=== PATIENT | male | born 2000 | race Hispanic/Latino ===

== ENCOUNTER 2025-07-12 02:52 | Emergency (ER) | payer SELFPAY ==
[~2025-07-12] VITALS: Ht 170.2 cm; Wt 66.7 kg
--- NOTE | 2025-07-12 04:49 | ERN ---
ED Note History of Present Illness Stated Complaint: SCALP LACERATION Chief Complaint: Laceration/Avulsion Time Seen by MD: 02:54 Dictation: This is a 25-year-old male who presented to the emergency room with complaints of bleeding and laceration of his scalp on the left side. Patient apparently drank 6 beers today and he was trying to maneuver through a frame which was wooden and hit the site left side of his head with force and sustained a laceration which bled. No other injury and no no loss of consciousness. No history of any blood thinners. No blurred vision facial droop motor weakness or seizure activity. Temperature 98 pulse 88 respirations 15 blood pressure 150/94 with a pulse oximetry of 97% on room air Allergies: Coded Allergies: No Known Drug Allergies (Unverified Allergy, Unknown, 07/12/25) Past Medical History Past Medical History: No Pertinent History Surgical History: None Family History: Negative Social History: ETOH RN Note Reviewed/Agreed w/PFSH: Yes Review of System Dictation Constitutional: Negative for fever,chills, and weight loss Eyes: Negative for injury, pain,redness, and discharge ENT: Negative for injury,pain or swelling Cardiovascular: Negative for chest pain, palpitations, and edema Respiratory: Negative for shortness of breath, cough, and wheezing, Abdomen/GI: Negative for abdominal pain, nausea, vomiting, diarrhea, and constipation Back: Negative for injury and pain : Negative for injury, bleeding and discharge MS/Extremity: Negative for injury and deformity Skin: Negative for rash, and discoloration positive for laceration and bleeding of the left side of the head Neuro: Negative for headache, weakness, numbness, tingling, and seizure Psych: Negative for suicide ideation, homicidal ideation, and hallucinations Initial Vital Sign VS Vital Signs Date Time Temp Pulse Resp B/P (MAP) Pulse Ox O2 Delivery O2 Flow Rate FiO2 07/12/25 02:53 98.8 88 15 150/94 97 Room Air 0 07/12/25 03:48 21 Physical Exam Dictation General: awake, alert, NAD Head/Face: Normocephalic, left parietal area about 2.5 cm linear laceration some fresh oozing of blood noted Eyes: PERRL, EOMI, vision at baseline ENT: oral cavity clear, TMs clear, no signs of infection Neck: Trachea midline, supple, no nuchal rigidity Cardiovascular: RRR, normal S1/S2, No MRGs, no JVD Respiratory: CTAB, no respiratory distress, No rales or wheezes Abdomen: Soft, non-tender, non-distended, normal bowel sounds, no guarding or rebound. Skin: Warm, dry, normal turgor, no rash MS/Extremity: Pulses equal, no cyanosis, neurovascular intact, FROM Neuro: COAx4, GCS 15, strength 5/5, CN 2-12 intact, normal cerebellar exam, normal gait, Psych: Normal behavior, mood, and affect normal Extremities-trace edema without any palpable cords, Homans sign is negative Results (Laboratory/Radiology) Labs Reviewed?: Yes ED Course ED Course Orders Procedure Category Date Status Time Ct Head/Brain W/O CT 07/12/25 Resulted Contrast 03:14 Tetanus,Diphtheria PHA 07/12/25 Complete Tox [Adult] (Diphther 05:00 Current Medications Medications (Trade) Dose Ordered Sig/Davida Route PRN Reason Start Time Stop Time Status Last Admin Dose Admin Tetanus/ Diphtheria Toxoids Adsorbed (DiphthERIA-teTANUS TOXOID [ADULT]/ DECAVAC) 0.5 ml ONCE ONCE IM 07/12/25 05:00 07/12/25 05:01 DC 07/12/25 04:57 Vital Signs Date Time Temp Pulse Resp B/P (MAP) Pulse Ox O2 Delivery O2 Flow Rate FiO2 07/12/25 05:04 98.8 80 16 116/82 100 Room Air* 0 21 07/12/25 03:48 98.8 89 17 103/70 100 Room Air* 0 21 07/12/25 02:53 98.8 88 15 150/94 97 Room Air 0 Medical Decision Making MDM Differential diagnosis: Closed head injury, hematoma of scalp, depressed skull fracture, laceration, intracranial bleed This is a 25-year-old male who presented to the emergency room with complaints of bleeding and laceration of his scalp on the left side. Patient apparently drank 6 beers today and he was trying to maneuver through a frame which was wooden and hit the site left side of his head with force and sustained a laceration which bled. No other injury and no no loss of consciousness. No history of any blood thinners. No blurred vision facial droop motor weakness or seizure activity. Temperature 98 pulse 88 respirations 15 blood pressure 150/94 with a pulse oximetry of 97% on room air Rationale: Tests considered and ordered secondary to shared decision making include: Head CT Previous outside records reviewed: Old ER visits. Risk of complication and/or morbidity or mortality of patient management: None Medications-Per medication reconciliation Need for hospitalization: Patient does not meet criteria for hospitalization. Need for emergency major/minor surgery: No There are no social concerns with this patient. Prescription drug management Prescriptions will include symptomatic care Patient's prior external medical records from other ER visits were reviewed by me as indicated. Prior testing and results from previous visits were reviewed. Prior tests were taken into account with medical decision making and resource utilization, independent historian/historians were used to obtain complete medical history. I independently interpreted the test that were performed, results were reviewed by me and considered findings on radiology if ordered. Medical management and examination interpretation discussions were had by me with other qualified healthcare professionals as indicated for the patient's care. Procedure Procedure Dictation: Procedure note-laceration repair Performing Physician -Danish WINN [id number]-wxiat-mahou scalp laceration about 3cm in size with gaping wound and bleeding Premedication and anesthesia-none Procedure-extensive saline irrigation was done and the laceration was cleaned thoroughly and prepped. Three patricia were placed from superior to the inferior to oppose the edges of the laceration. Hemostasis was achieved wound was cleansed after the suturing and sterile dressing applied. Patient tolerated the procedure extremely well without any immediate complications. Patient was instructed on wound care and he will return to the ER for removal of sutures in 7-10 days Wound Location: head Wound Length (cm): 3 Wound's Depth, Shape: into muscle, linear Wound Explored: contaminated Betadine Prep?: Yes Wound Debrided: minimal Wound Repaired With: patricia Sterile Dressing Applied?: Yes Problem List Problem List: (1) Closed head injury (2) Laceration of scalp (3) Alcohol ingestion DX & DISP Disposition: Discharge Departure Impression: Primary Impression: Head injury Additional Impressions: Laceration of scalp, Alcohol ingestion Condition: Stable Additional Instructions: Patient and the caregiver have been informed of all the diagnostic tests and the imaging conducted during the today's visit to the emergency room and has verbalized understanding of the results I have personally reviewed and interpreted all diagnostic exams performed here in the ER today as well as the vital signs documented by the nursing staff. The patient is now being discharged to home and should follow up with the primary care physician or the specialist as directed by the ER staff. Follow-up with primary care provider in 1 to 2 days. Take medications as directed here in the emergency room. Okay to continue home medications unless otherwise discussed during your visit in the emergency room today. Return to your nearest emergency room if symptoms worsen or if there is no improvement. Call 911 if you need immediate assistance. Take Tylenol or Motrin [id number] as needed and if no contraindications are present. Increase oral hydration. A wound culture or urine culture was ordered here in the emergency room department please follow-up with primary care provider and advise them to get repeat ports from our facility. If you had any Salvatore wrap/splints that were applied here, please do not remove them until you see your primary care or specialty. Referrals: SELF,REFERRAL (PCP) LC ANAYA MD Jul 12, 2025 04:49
[2025-07-12 05:04] VITALS: BP 116/82; PULSE 80; RESP 16; TEMP 98.8; O2SAT 100
--- NOTE | 2025-07-12 05:05 | NUR ---
ED MD ANAYA PLACED 3 ALBERTO TO LAC AT BEDSIDE. PT TOLERATED PROEDURE WELL. NO SIGNS OF DISTRESS. EVEN AND UNLABORED BREATHING NOTED. PT DENIES PAIN.
--- NOTE | 2025-07-12 05:30 | HMCIMG ---
EXAM: CT Head Without IV contrast. CLINICAL HISTORY: Alcohol intoxication, Head injury- parietal scalp laceration TECHNIQUE: Axial computed tomography images of the head/brain without intravenous contrast. COMPARISON: None provided. FINDINGS: BRAIN: No evidence of acute hemorrhage. No mass lesion. No CT evidence for acute territorial infarct. No midline shift or extra-axial collections. VENTRICLES: No hydrocephalus. ORBITS: The orbits are unremarkable. SINUSES AND MASTOIDS: The paranasal sinuses and mastoid air cells are clear. BONES: No fracture. SOFT TISSUES: Pericranial soft tissue swelling in the left parietal region. IMPRESSION: No acute intracranial abnormality. Pericranial soft tissue swelling in the left parietal region. /[place]
== END 2025-07-12 05:07 | disposition home or self-care (01) ==
LOC: EDH 02:52
DX: S01.01XA Laceration without foreign body of scalp, initial encounter (principal); F10.129 Alcohol abuse with intoxication, unspecified; Y90.9 Presence of alcohol in blood, level not specified; W22.09XA Striking against other stationary object, initial encounter; Y93.89 Activity, other specified; Y92.89 Other specified places as the place of occurrence of the external cause; Y99.8 Other external cause status
CPT/HCPCS: 12002; 70450; 90471; 90714; 99285